=== PATIENT | male | born 1960 | race Caucasian/White ===

== ENCOUNTER → 2017-01-10 | Outpatient (CLI) | payer OTHER ==
[~2017-01-10] MED LIST: BACT800T5 PO; GABA100C4 PO; GLIP10TA6 PO; GLIP5TAB8 PO; METF500T PO; NORT10CA PO; NOVO7030P2 SQ; NOVORP2 SQ; [UNRECOGNIZED DRUG - CODE]
[2017-01-10 09:43] LABS: AUTOMATED NEUTROPHIL # 5.8 TH/MM3 (1.8-7.7); BASOPHIL # 0.1 TH/MM3 (0-0.2); BASOPHIL % 0.6 % (0.0-2.0); EOSINOPHIL # 0.2 TH/MM3 (0-0.4); EOSINOPHIL % 1.8 % (0.0-4.0); HEMO FLAGS DIFF FINAL; LYMPH % 23.5 % (9.0-44.0); MEAN CELL VOLUME 83.3 FL (80.0-100.0); MEAN CORPUSCULAR HEMOGLOBIN 27.9 PG (27.0-34.0); MEAN CORPUSCULAR HGB CONC 33.5 % (32.0-36.0); MONO % 6.9 % (0.0-8.0); NEUT % 67.2 % (16.0-70.0); PLATELET COUNT 194 TH/MM3 (150-450); RED BLOOD COUNT 5.17 MIL/MM3 (4.50-5.90); RED CELL DISTRIBUTION WIDTH 13.6 % (11.6-17.2); WHITE BLOOD COUNT 8.6 TH/MM3 (4.0-11.0)
[2017-01-10 10:22] LABS: ALT (GPT) 15 U/L (12-78); ANION GAP 8 MEQ/L (5-15); AST (GOT) 13 U/L (15-37); BICARBONATE 26.9 MEQ/L (21.0-32.0); BLOOD UREA NITROGEN 14 MG/DL (7-18); CHLORIDE 97 MEQ/L (98-107); GLOMERULAR FILTRATION RATE 104 ML/MIN (>89); GLUCOSE,FASTING 351 MG/DL (74-99); HEMOGLOBIN A1a 2.2 %; HEMOGLOBIN Ao 69.9 %; HEMOGLOBIN LA1C 3.7 %; POTASSIUM 4.3 MEQ/L (3.5-5.1); SODIUM (NA) 132 MEQ/L (136-145)
[2017-01-10 10:25] LABS: ALKALINE PHOSPHATASE 105 U/L (45-117); HDL CHOLESTEROL 38.6 MG/DL (40.0-60.0); LDL CHOLESTEROL 123 MG/DL (0-99); TOTAL BILIRUBIN ADULT 0.5 MG/DL (0.2-1.0)
== END ==
LOC: CLAB 08:55
PROVIDERS: ATTEND Nurse Practitioner Family
DX: E11.9 Type 2 diabetes mellitus without complications (principal)
CPT/HCPCS: 36415; 80053; 80061; 83036; 85025

== ENCOUNTER → 2017-03-12 | Outpatient (CLI) | payer OTHER ==
[~2017-03-12] MED LIST changes: +ASPI325T PO; -GLIP5TAB8 PO; +LOVA20TA PO; +METO25TA3 PO; +MULTTAB67 PO; -NORT10CA PO; -NOVORP2 SQ
[2017-03-12 11:08] LABS: HDL CHOLESTEROL 38.2 MG/DL (40.0-60.0)
== END ==
LOC: CLAB 09:56
PROVIDERS: ATTEND Nurse Practitioner Family
DX: E78.5 Hyperlipidemia, unspecified (principal)
CPT/HCPCS: 36415; 80061

== ENCOUNTER → 2017-03-13 | Outpatient (CLI) | payer OTHER ==
--- NOTE | 2017-03-13 14:04 | EKG ---
Date Performed: 03/13/2017 Time Performed: 10:04:26 PTAGE: 56 years EKG: Atrial fibrillation. Abnormal ECG NO PREVIOUS TRACING DOCTOR: Raulito Schultz Interpretating Date/Time 03/13/2017 14:03:58
== END ==
LOC: HCAV 09:57
PROVIDERS: ATTEND Nurse Practitioner Family
DX: I49.9 Cardiac arrhythmia, unspecified (principal)
CPT/HCPCS: 93005

== ENCOUNTER 2017-07-23 19:37 | Observation (INO) | payer OTHER ==
[2017-07-23] VITALS (7 sets, daily range): BP systolic 139–197; BP diastolic 70–120; PULSE 94–117; RESP 16–18; TEMP 98.4; O2SAT 98–100
[~2017-07-23 19:37] MED LIST changes: +ASPI-183 PO; -ASPI325T PO; -BACT800T5 PO
--- NOTE | 2017-07-23 20:17 | RADRPT ---
EXAM DATE/TIME: 07/23/2017 19:55 [facility] COMPARISON: No previous studies available for comparison. INDICATIONS : Chest pain. MEDICAL HISTORY : Hypertension. AFIB, Diabetes SURGICAL HISTORY : None. ENCOUNTER: Initial ACUITY: 1 day PAIN SCORE: 7/10 LOCATION: Left chest FINDINGS: PA and lateral views of the chest demonstrate the lungs to be symmetrically aerated without evidence of mass, infiltrate or effusion. The cardiomediastinal contours are unremarkable. Osseous structure s are intact. CONCLUSION: No acute disease. Reji Peters MD on July 23, 2017 at 20:12 Board Certified Radiologist. This report was verified electronically.
[2017-07-23 20:33] LABS: AUTOMATED NEUTROPHIL # 7.8 TH/MM3 (1.8-7.7); BASOPHIL % 0.4 % (0.0-2.0); EOSINOPHIL # 0.1 TH/MM3 (0-0.4); EOSINOPHIL % 0.8 % (0.0-4.0); HEMATOCRIT 41.9 % (39.0-51.0); HEMOGLOBIN 14.3 GM/DL (13.0-17.0); LYMPH % 19.3 % (9.0-44.0); LYMPHOCYTE # 2.1 TH/MM3 (1.0-4.8); MEAN CELL VOLUME 84.2 FL (80.0-100.0); MEAN CORPUSCULAR HEMOGLOBIN 28.7 PG (27.0-34.0); MEAN CORPUSCULAR HGB CONC 34.1 % (32.0-36.0); MEAN PLATELET VOLUME 8.7 FL (7.0-11.0); MONO % 8.2 % (0.0-8.0); MONOCYTE # 0.9 TH/MM3 (0-0.9); NEUT % 71.3 % (16.0-70.0); PLATELET COUNT 198 TH/MM3 (150-450); RED BLOOD COUNT 4.97 MIL/MM3 (4.50-5.90); RED CELL DISTRIBUTION WIDTH 15.6 % (11.6-17.2)
[2017-07-23 20:49] LABS: BICARBONATE 28.2 MEQ/L (21.0-32.0); BLOOD UREA NITROGEN 7 MG/DL (7-18); CALCIUM 9.6 MG/DL (8.5-10.1); CHLORIDE 94 MEQ/L (98-107); GLOMERULAR FILTRATION RATE 76 ML/MIN (>89); GLUCOSE,RANDOM 264 MG/DL (74-106); MAGNESIUM 1.9 MG/DL (1.5-2.5); SODIUM (NA) 130 MEQ/L (136-145)
[2017-07-23 20:51] LABS: PROTHROMBIN TIME - PATIENT 10.3 SEC (9.8-11.6)
[2017-07-23 20:53] LABS: TROPONIN I LESS THAN 0.02 NG/ML (0.02-0.05)
--- NOTE | 2017-07-23 20:59 | PD ---
HPI Chief Complaint: Chest Pain Time Seen by Provider: 20:40 Travel History International Travel<30 days: No Contact w/Intl Traveler<30days: No Traveled to known affect area: No History of Present Illness HPI The patient is a 57 year old male who presents to the [facility] emergency department with a history of this afternoon developing a sensation of squeezing in the center of his chest and intermittent sharp pains between his shoulder blades. The patient reports that he tried to stop drinking alcohol earlier today. He reports that he had been binging on alcohol for the last week. Prior to that he had been sober for 3 weeks. Patient has intermittently been battling alcoholism for years. His longest period of sobriety was 7 years. He did go to see his Alcoholics Anonymous sponsor earlier today and was told he needed to go to the emergency department for the chest pain. The patient reports that over the last few days he has not been taking his medications for atrial fibrillation, hypertension, and diabetes mellitus. The patient reports that he is on an adult aspirin daily for his atrial fibrillation. He denies ever having a stress test previously. He denies having any prior history of myocardial infarction. He reports having a family history of stroke in his dad. The patient also reports having a personal history of hyperlipidemia. He denies smoking. On review of systems otherwise, the patient reports that he does have associated shortness of breath with the squeezing sensation in his chest. He denies having any recent fevers, cough or congestion, neck pain, abdominal pain, vomiting, diarrhea, urinary symptoms, or neurologic symptoms. [facility] Past Medical History Narrative Medical The patient's past medical history is significant for alcohol abuse, diabetes mellitus, hyperlipidemia, hypertension, atrial fibrillation, diabetic neuropathy. The patient's primary care physician is to the [facility], a nurse practitioner. He cannot recall the name of at this time. Cardiovascular Problems: Yes Diabetes: Yes Past Surgical History Narrative Surgical The patient's past surgical history is significant for left foot pinning. Social History Alcohol Use: Yes (Two 4 packs of beer per day) Tobacco Use: No Substance Use: No Allergies-Medications (Allergen,Severity, Reaction): Coded Allergies: No Known Allergies (Unverified Allergy, Unknown, 07/23/17) Reported Meds & Prescriptions Reported Meds & Active Scripts Active Lovastatin 20 Mg Tab 20 Mg PO DAILY Metoprolol Tartrate 25 Mg Tab 25 Mg PO BID Aspirin 325 Mg Tab 325 Mg PO DAILY Metformin (Metformin HCl) 500 Mg Tab 500 Mg PO BIDPC With meals Glipizide 10 Mg Tab 10 Mg PO BIDAC Take 30 minutes before a meal Multiple Vitamin 1 Tab 1 Tab PO DAILY Gabapentin 100 Mg Cap 100 Mg PO TID Bd Insulin Syringe Ultraf 31G X 15/64" 0.5 ml (Insulin Syringe/Needle U-100) 1 Mis Mis Box Novolin 70-30 Inj (Insulin Human Isoph/Insulin Regular) 1,000 Unit/10 Ml Vial 12 Units SQ BID Review of Systems Except as stated in HPI: all other systems reviewed are Neg General / Constitutional: No: Fever Eyes: No: Visual changes HENT: Positive: Headaches, No: Congestion Cardiovascular: Positive: Chest Pain or Discomfort, Dyspnea on exertion Respiratory: Positive: Shortness of Breath, No: Cough Gastrointestinal: No: Nausea, Vomiting, Diarrhea, Abdominal Pain Genitourinary: No: Dysuria Musculoskeletal: No: Pain Skin: No Rash Neurologic: Positive: Headache, No: Weakness, Syncope, Focal Abnormalities, Change in Mentation, Slurred Speech, Sensory Disturbance Psychiatric: No: Depression Endocrine: No: Polydipsia Hematologic/Lymphatic: No: Easy Bruising Physical Exam Narrative General: The patient is a well-developed well-nourished male in no acute distress. Head and Neck exam: Head is normocephalic atraumatic. Eyes: EOMI, pupils are equal round and reactive to light. Nose: Midline septum with pink mucous membranes Mouth: Dentition unremarkable. Moist mucus membranes. Posterior oropharynx is not erythematous. No tonsillar hypertrophy. Uvula midline. Airway patent. Neck: No palpable lymphadenopathy. No nuchal rigidity. No thyromegaly. Cardiovascular: Irregularly irregular with a rate in the 1 teens to 120s without murmurs, gallops, or rubs. Lungs: Clear to auscultation bilaterally. No wheezes, rhonchi, or rales. Abdomen: Soft, without tenderness to palpation in all 4 quadrants of the abdomen. No guarding, rebound, or rigidity. Normal bowel sounds are audible. No tenderness on palpation of McBurney's point. Negative Vidales sign. Extremities: No clubbing, cyanosis, or edema. 2+ pulses in all 4 extremities. No calf tenderness on palpation. Back: No spinous process tenderness to palpation. No costovertebral angle tenderness to palpation. Neurologic Exam: Grossly nonfocal Skin Exam: No rash noted. Intact skin that is warm and dry. Data Data Last Documented VS Vital Signs Date Time Temp Pulse Resp B/P (MAP) Pulse Ox O2 Delivery O2 Flow Rate FiO2 07/23/17 21:33 98 16 147/70 (95) 100 Room Air 07/23/17 19:42 98.4 Orders Orders Electrocardiogram (07/23/17 19:45) Basic Metabolic Panel (Bmp) (07/23/17 19:45) B-Type Natriuretic Peptide (07/23/17 19:45) Ckmb (Isoenzyme) Profile (07/23/17 19:45) Complete Blood Count With Diff (07/23/17 19:45) Magnesium (Mg) (07/23/17 19:45) Prothrombin Time / Inr (Pt) (07/23/17 19:45) Act Partial Throm Time (Ptt) (07/23/17 19:45) Troponin I (07/23/17 19:45) Chest, Pa & Lat (07/23/17 19:45) Thyroid Stimulating Hormone (07/23/17 20:51) Iv Access Insert/Monitor (07/23/17 20:51) Ecg Monitoring (07/23/17 20:51) Oximetry (07/23/17 20:51) Sodium Chlor 0.9% 1000 Ml Inj (Ns 1000 M (07/23/17 21:00) Thiamine Inj (Thiamine Inj) (07/23/17 21:00) Diltiazem Inj (Cardizem Inj) (07/23/17 21:00) Nitroglycerin Sl (Nitrostat Sl) (07/23/17 21:00) Nitroglycerin 2% Oint (Nitroglycerin 2% (07/23/17 21:00) Aspirin Chew (Aspirin Chew) (07/23/17 21:00) CKMB (07/23/17 20:01) CKMB% (07/23/17 20:01) Cta Thor Abd Aorta W Iv C W3d (07/23/17 ) Bilateral Bp Monitoring (07/23/17 20:59) Iohexol 350 Inj (Omnipaque 350 Inj) (07/23/17 21:41) Diltiazem Inj (Cardizem Inj) (07/23/17 22:45) Admit Order (Ed Use Only) (07/23/17 22:46) Chlordiazepoxide (Librium) (07/23/17 23:00) Labs Laboratory Tests Test 07/23/17 20:01 07/23/17 21:15 White Blood Count 11.0 TH/MM3 Red Blood Count 4.97 MIL/MM3 Hemoglobin 14.3 GM/DL Hematocrit 41.9 % Mean Corpuscular Volume 84.2 FL Mean Corpuscular Hemoglobin 28.7 PG Mean Corpuscular Hemoglobin Concent 34.1 % Red Cell Distribution Width 15.6 % Platelet Count 198 TH/MM3 Mean Platelet Volume 8.7 FL Neutrophils (%) (Auto) 71.3 % Lymphocytes (%) (Auto) 19.3 % Monocytes (%) (Auto) 8.2 % Eosinophils (%) (Auto) 0.8 % Basophils (%) (Auto) 0.4 % Neutrophils # (Auto) 7.8 TH/MM3 Lymphocytes # (Auto) 2.1 TH/MM3 Monocytes # (Auto) 0.9 TH/MM3 Eosinophils # (Auto) 0.1 TH/MM3 Basophils # (Auto) 0.0 TH/MM3 CBC Comment DIFF FINAL Differential Comment Prothrombin Time 10.3 SEC Prothromb Time International Ratio 1.0 RATIO Activated Partial Thromboplast Time 24.0 SEC Blood Urea Nitrogen 7 MG/DL Creatinine 1.00 MG/DL Random Glucose 264 MG/DL Calcium Level 9.6 MG/DL Magnesium Level 1.9 MG/DL Sodium Level 130 MEQ/L Potassium Level 3.9 MEQ/L Chloride Level 94 MEQ/L Carbon Dioxide Level 28.2 MEQ/L Anion Gap 8 MEQ/L Estimat Glomerular Filtration Rate 76 ML/MIN Total Creatine Kinase 138 U/L Creatine Kinase MB 3.6 NG/ML Troponin I LESS THAN 0.02 NG/ML B-Type Natriuretic Peptide 30 PG/ML Thyroid Stimulating Hormone 3rd Gen 2.050 uIU/ML MDM Medical Decision Making Medical Screen Exam Complete: Yes Emergency Medical Condition: Yes Medical Record Reviewed: Yes Interpretation(s) Last Impressions Chest X-Ray 07/23/17 194 Signed Impressions: Service Date/Time: Sunday, July 23, 2017 19:55 - CONCLUSION: No acute disease. Reji Peters MD Aorta CTA 07/23/17 0000 Signed Impressions: Service Date/Time: Sunday, July 23, 2017 21:36 - CONCLUSION: 1. Negative exam. No aortic dissection or aneurysm. Moderate coronary calcifications. Reji Peters MD Differential Diagnosis Acute coronary syndrome, versus A. fib with RVR, versus diabetic ketoacidosis, versus hyperglycemia due to medication noncompliance, versus hypertensive emergency, versus aortic dissection Narrative Course During the course of the patient's emergency department visit, the patient's history, examination, and differential diagnosis were reviewed with the patient. The patient was placed on a ekg monitor tech with oximetry and frequent blood pressure monitoring. The patient had IV access obtained and blood work sent for analysis. The patient had a EKG done on arrival that shows A. fib with RVR, heart rate of 102, no acute ST segment elevation duration is 76 ms, QTC 395 ms. The patient was initially provided normal saline 1 L IV fluid bolus, thiamine 100 mg IV, Cardizem 20 mg IV, nitroglycerin sublingual every 5 minutes 3 as needed chest pain, nitroglycerin 1 inch to the chest wall, aspirin 324 mg p.o. 1. The patient was given Librium 25 mg p.o. 1. The patient's heart rate began to go up again and the patient was started on a Cardizem drip. The patient's laboratory studies were reviewed and remarkable for A white count of 11, hemoglobin 14.3, platelets 198 with neutrophils 71.3, monocytes 8.8.2, CMP is remarkable for sodium of 130, chloride 94, GFR of 76, glucose 264, initial set of cardiac enzymes are negative, BNP is 3, PT 10.3, PTT 240 Radiology studies were reviewed and remarkable for a chest x-ray that shows no acute cardiopulmonary disease. CTA of the aorta was negative for dissection. The patient's results were discussed with the patient, including the plan of care. I explained that further testing and/ or monitoring is indicated based on the patient's history, examination, and/ or laboratory findings. Therefore, I recommended admission for additional evaluation. The patient expressed understanding and was agreeable with this plan. The patient was admitted to the hospital in stable condition and sent to a bed under the care of the [facility]. Physician Communication Physician Communication The patient's case including history, pertinent physical examination findings, and laboratory studies were discussed with Dr. Oung. It was agreed that the patient would be admitted to the [facility]. Diagnosis Primary Impression: Chest pain, rule out acute myocardial infarction Additional Impressions: Atrial fibrillation with RVR Alcohol abuse Noncompliance with medication regimen Admitting Information Admitting Physician Requests: Princess Cole MD Jul 23, 2017 20:58
[2017-07-23] MEDS ORDERED: THIAMINE INJ 100 MG in SODIUM CHLORIDE 0.9% INJ 100 ML IV ONE (21:00)
[2017-07-23] MEDS ORDERED: DILTIAZEM HCL 25 MG/5 ML VIAL IV ONE (21:00)
[2017-07-23] MEDS ORDERED: NITROGLYCERIN 2% OINT 1 GM PACKET TOPICAL ONE (21:00)
[2017-07-23] MEDS ORDERED: ASPIRIN 81 MG CHEW TAB CHEW ONE (21:00)
[2017-07-23] MEDS ORDERED: SODIUM CHLOR 0.9% 1000 ML INJ 1,000 ML IV ONE (21:00)
[2017-07-23] MEDS: NITROGLYCERIN 0.4 MG SL 25 TABS/BTL SL PRN ×3 (21:07→21:41)
[2017-07-23] MEDS ORDERED: IOHEXOL 350 MG/ML 10 ML VIAL (for RAD DIAG) IVCONTRAST ONE (21:41)
--- NOTE | 2017-07-23 22:11 | RADRPT ---
EXAM DATE/TIME: 07/23/2017 21:36 [facility] COMPARISON: No previous studies available for comparison. INDICATIONS : Patient complains of chest pain, evaluate for aortic dissection. IV CONTRAST: 100 cc Omnipaque 350 (iohexol) IV RADIATION DOSE: 7.75 CTDIvol (mGy) MEDICAL HISTORY : Cardiovascular disease. Hypertension. Diabetes mellitus type 1.A fib SURGICAL HISTORY : None. ENCOUNTER: Initial ACUITY: 1 day PAIN SCALE: 2/10 LOCATION: chest TECHNIQUE: Volumetric scanning was performed using a multi-row detector CT scanner. The data was post processed with a variety of visualization algorithms including full volume maximum intensity projection, multi -planar sliding thin slab reformation, curved planar reformation, and surface rendering techniques. Using automated exposure control and adjustment of the mA and/or kV according to patient size, radiat ion dose was kept as low as reasonably achievable to obtain optimal diagnostic quality images. DICOM format image data is available electronically for review and comparison. FINDINGS: LUNGS: There is no consolidation or pneumothorax. No concerning pulmonary nodule is visualized. No pleural fluid is present. MEDIASTINUM: No abnormally enlarged lymph nodes by CT criteria. No axillary or hilar abnormalities are identified. Moderate coronary calcifications. ABDOMEN: The liver and spleen are free of focal defects. The gallbladder and pancreas demonstrate no abnormali ty. The adrenal glands are normal. The kidneys demonstrate no evidence of solid renal mass or hydrone phrosis. No free fluid or abdominal masses are identified. No para-aortic adenopathy is seen. PELVIS: No evidence of free fluid or pelvic mass. No abnormally enlarged inguinal or retroperitoneal lymph no lauren are present. The bladder is unremarkable. THORACIC AORTA: The thoracic aortic root is normal with normal branching of the great vessels. There is no evidence of aneurysm or dissection. ABDOMINAL AORTA: The aorta is normal in caliber without aneurysm or dissection. The renal arteries are patent bilater ally. The proximal celiac and superior mesenteric arteries are patent and normal in diameter. PELVIC VESSELS: The internal iliac and external iliac vessels are patent without aneurysm or stenosis. CONCLUSION: 1. Negative exam. No aortic dissection or aneurysm. Moderate coronary calcifications. Reji Peters MD on July 23, 2017 at 21:56 Board Certified Radiologist. This report was verified electronically.
[2017-07-23] MEDS ORDERED: DILTIAZEM INJ 125 MG in SODIUM CHLORIDE 0.9% INJ 100 ML IV PRN (22:45)
[2017-07-23] MEDS ORDERED: NALOXONE HCL 0.4 MG/ML AMP IV PUSH PRN (23:00)
[2017-07-23] MEDS ORDERED: LORazepam 2 MG/ML VIAL IV PUSH PRN (23:00)
[2017-07-23] MEDS ORDERED: chlordiazePOXIDE 25 MG CAP PO PRN (23:00)
[2017-07-23] MEDS ORDERED: SODIUM CHLORIDE 0.9% FLUSH 10 ML FLUSH IV FLUSH PRN (23:00)
[2017-07-24] VITALS (12 sets, daily range): BP systolic 107–141; BP diastolic 62–81; PULSE 77–117; RESP 14–20; TEMP 97.2–99.1; O2SAT 77–99
--- NOTE | 2017-07-24 01:16 | HHI.HP ---
[facility] Primary Care Physician Admission Diagnosis Afib with rvr, Chest pain r/o mi Diagnoses: Travel History International Travel<30 Days: No Contact w/Intl Traveler <30 Da: No Traveled to Known Affected Are: No History of Present Illness History from patient, ER physician, medication, review of medical records. Patient reported that today, while he was walking, he felt a knot in his chest right in the middle. He stated the discomfort did not go away even with rest. Also reports of this pain radiated into his back. Reports of associated sweats and chills as well. He states that the pain did not go away even with rest. He thought that this symptoms came because he has been trying to stop alcohol lately. Therefore he even drank a few beers daily but this also did not help with his chest pain. Then went to AA meeting and mentioned about his symptoms to the members there basically drove him to the hospital for further evaluation. Patient's blood pressure was high on arrival. He was also found to have A. fib with RVR and emergency room. He was given 1 dose of Cardizem 20 mg IV in ER after which his heart rate came down to about 90s. Patient admits to not taking his medications at home. He denies any prior history of chest pains like this. He states that today as well, he did not feel any palpitations. He was given Nitropaste in the emergency room. He states it did not really relieve his being 100%. He still continues to have pain at the time of my interview. Never had stress test. Denies any prior history of smoking. Risk factors of hypertension, diabetes, hyperlipidemia. Again, patient has not been taking his meds for past 4 days because of binge drinking. He states that his medications were at his friend's house. Review of Systems Except as stated in HPI: all other systems reviewed are Neg Past Family Social History Past Medical History htn dm hyperlipidemia afib- only on aspirin Past Surgical History toe has titanium and pins in it- left big toe Allergies: Coded Allergies: No Known Allergies (Verified Allergy, Unknown, 07/23/17) Family History 67 yo dad from [facility] mom- with enlarged heart in her 50s, cardiac arrest- recovered, and in her 70s Social History never smoked etoh abuse no drugs abuse- many years ago, used some pills Physical Exam Vital Signs Vital Signs Date Time Temp Pulse Resp B/P (MAP) Pulse Ox O2 Delivery O2 Flow Rate FiO2 07/24/17 01:03 94 16 141/79 (99) 99 Room Air 07/23/17 23:17 95 16 139/78 (98) 98 Room Air 07/23/17 22:30 94 18 139/76 (97) 100 Room Air 07/23/17 21:33 98 16 147/70 (95) 100 Room Air 07/23/17 21:31 106 16 161/74 (103) 100 07/23/17 20:46 106 16 189/112 (137) 100 07/23/17 20:44 117 18 197/111 (139) 100 07/23/17 19:42 98.4 112 18 195/120 (145) 100 Physical Exam GENERAL: This is a well-nourished, well-developed patient, in no apparent distress. SKIN: No rashes, ecchymoses or lesions. Cool and dry. HEAD: Atraumatic. Normocephalic. No temporal or scalp tenderness. EYES: No scleral icterus. No injection or drainage. ENT: Nose without bleeding, purulent drainage or septal hematoma. Airway patent. NECK: Trachea midline. No JVD CARDIOVASCULAR: Regular rate and rhythm without murmurs, gallops, or rubs. RESPIRATORY: Clear to auscultation. Breath sounds equal bilaterally. No wheezes , rales, or rhonchi. GASTROINTESTINAL: Abdomen soft, non-tender, nondistended. No guarding. MUSCULOSKELETAL: Extremities without clubbing, cyanosis, or edema.. No calf tenderness. NEUROLOGICAL: Awake and alert. Motor and sensory grossly within normal limits. Normal speech. Laboratory Laboratory Tests Test 07/23/17 20:01 07/23/17 21:15 White Blood Count 11.0 Red Blood Count 4.97 Hemoglobin 14.3 Hematocrit 41.9 Mean Corpuscular Volume 84.2 Mean Corpuscular Hemoglobin 28.7 Mean Corpuscular Hemoglobin Concent 34.1 Red Cell Distribution Width 15.6 Platelet Count 198 Mean Platelet Volume 8.7 Neutrophils (%) (Auto) 71.3 Lymphocytes (%) (Auto) 19.3 Monocytes (%) (Auto) 8.2 Eosinophils (%) (Auto) 0.8 Basophils (%) (Auto) 0.4 Neutrophils # (Auto) 7.8 Lymphocytes # (Auto) 2.1 Monocytes # (Auto) 0.9 Eosinophils # (Auto) 0.1 Basophils # (Auto) 0.0 CBC Comment DIFF FINAL Differential Comment Prothrombin Time 10.3 Prothromb Time International Ratio 1.0 Activated Partial Thromboplast Time 24.0 Blood Urea Nitrogen 7 Creatinine 1.00 Random Glucose 264 Calcium Level 9.6 Magnesium Level 1.9 Sodium Level 130 Potassium Level 3.9 Chloride Level 94 Carbon Dioxide Level 28.2 Anion Gap 8 Estimat Glomerular Filtration Rate 76 Total Creatine Kinase 138 Creatine Kinase MB 3.6 Troponin I LESS THAN 0.02 B-Type Natriuretic Peptide 30 Thyroid Stimulating Hormone 3rd Gen 2.050 Result Diagram: 07/23/17200007/23/172000 Imaging Last 48 hours Impressions Chest X-Ray 07/23/17 1945 Signed Impressions: Service Date/Time: Sunday, July 23, 2017 19:55 - CONCLUSION: No acute disease. Reji Peters MD Aorta CTA 07/23/17 0000 Signed Impressions: Service Date/Time: Sunday, July 23, 2017 21:36 - CONCLUSION: 1. Negative exam. No aortic dissection or aneurysm. Moderate coronary calcifications. MD Arabella Feliz VTE Risk Assessment Nixonrini VTE Risk Assessment: Mod/High Risk (score >= 2) Caprini Risk Assessment Model Point Value = 1 Point Value = 2 Point Value = 3 Point Value = 5 Age 41-60 Minor surgery BMI > 25 kg/m2 Swollen legs Varicose veins or History of unexplained or recurrent spontaneous Oral contraceptives or hormone replacement Sepsis (< 1 month) Serious lung disease, including pneumonia (< 1 month) Abnormal pulmonary function Acute myocardial infarction Congestive heart failure (< 1 month) History of inflammatory bowel disease Medical patient at bed rest Age 61-74 Arthroscopic surgery Major open surgery (> 45 min) Laparoscopic surgery (> 45 min) Malignancy Confined to bed (> 72 hours) Immobilizing plaster cast Central venous access Age >= 75 History of VTE Family history of VTE Factor V Leiden Prothrombin [id number] Lupus anticoagulant Anticardiolipin antibodies Elevated serum homocysteine Heparin-induced thrombocytopenia Other congenital or acquired thrombophilia Stroke (< 1 month) Elective arthroplasty Hip, pelvis, or leg fracture Acute spinal cord injury (< 1 month) Prophylaxis Regimen Total Risk Factor Score Risk Level Prophylaxis Regimen 0-1 Low Early ambulation 2 Moderate Order ONE of the following: *Sequential Compression Device (SCD) *Heparin 5000 units SQ BID 3-4 Higher Order ONE of the following medications: *Heparin 5000 units SQ TID *Enoxaparin/Lovenox 40 mg SQ daily (WT < 150 kg, CrCl > 30 mL/min) *Enoxaparin/Lovenox 30 mg SQ daily (WT < 150 kg, CrCl > 10-29 mL/min) *Enoxaparin/Lovenox 30 mg SQ BID (WT < 150 kg, CrCl > 30 mL/min) AND/OR *Sequential Compression Device (SCD) 5 or more Highest Order ONE of the following medications: *Heparin 5000 units SQ TID (Preferred with Epidurals) *Enoxaparin/Lovenox 40 mg SQ daily (WT < 150 kg, CrCl > 30 mL/min) *Enoxaparin/Lovenox 30 mg SQ daily (WT < 150 kg, CrCl > 10-29 mL/min) *Enoxaparin/Lovenox 30 mg SQ BID (WT < 150 kg, CrCl > 30 mL/min) AND *Sequential Compression Device (SCD) Assessment and Plan Assessment and Plan Impression: Unstable angina A. fib with RVR. Resolved with just 1 times dose of Cardizem 20 mg IV. Patient did not require any drip. Mild dehydration resulting in tachycardia and hemoconcentration Medications noncompliance htn dm hyperlipidemia afib- only on aspirin Plan: Serial enzymes and EKG. Telemetry monitoring. Patient received 1 L normal saline bolus in the ER. After the above hydration, and Cardizem 20 mg IV 1 dose, patient's heart rate has been around 80 to 90s in ER for several hours. Patient never required any Cardizem drip. Start patient on Lovenox 1 mg/kg subcutaneous every 12 hours. Aspirin. Beta blockers. Statins. Echocardiogram in a.m. Cardiology consult for risk stratification and further ischemic workup. Hold metformin. Resume glipizide. Fingersticks and sliding scale coverage. Patient is a candidate for full anticoagulation. Discussed with patient. If no further invasive workup, will need to start patient on anticoagulation. DVT prophylaxis on Lovenox. Discussed Condition With Patient, ER physician, nursing staff Al Cuadra MD Jul 24, 2017 01:16
[2017-07-24] MEDS ORDERED: GLUCAGON 1 MG/ML VIAL OTHER PRN (01:30)
[2017-07-24] MEDS ORDERED: DEXTROSE 50% IN WATER 50 ML VIAL(D50) IV PUSH PRN (01:30)
[2017-07-24 02:36] LABS: TROPONIN I LESS THAN 0.02 NG/ML (0.02-0.05)
[2017-07-24] MEDS: MELATONIN 5 MG TAB PO PRN ×2 (03:40→20:44)
[2017-07-24 05:18] LABS: AUTOMATED NEUTROPHIL # 5.2 TH/MM3 (1.8-7.7); BASOPHIL % 0.4 % (0.0-2.0); EOSINOPHIL # 0.1 TH/MM3 (0-0.4); EOSINOPHIL % 1.5 % (0.0-4.0); HEMATOCRIT 36.4 % (39.0-51.0); HEMOGLOBIN 12.5 GM/DL (13.0-17.0); LYMPH % 16.8 % (9.0-44.0); LYMPHOCYTE # 1.2 TH/MM3 (1.0-4.8); MEAN CORPUSCULAR HEMOGLOBIN 29.3 PG (27.0-34.0); MEAN CORPUSCULAR HGB CONC 34.4 % (32.0-36.0); MONO % 9.5 % (0.0-8.0); MONOCYTE # 0.7 TH/MM3 (0-0.9); NEUT % 71.8 % (16.0-70.0); PLATELET COUNT 155 TH/MM3 (150-450); RED BLOOD COUNT 4.29 MIL/MM3 (4.50-5.90); RED CELL DISTRIBUTION WIDTH 15.8 % (11.6-17.2); WHITE BLOOD COUNT 7.3 TH/MM3 (4.0-11.0)
[2017-07-24 05:33] LABS: BICARBONATE 26.5 MEQ/L (21.0-32.0); CALCIUM 8.5 MG/DL (8.5-10.1); CREATININE 0.99 MG/DL (0.60-1.30)
[2017-07-24] MEDS: glipiZIDE 10 MG TAB PO SCH ×2 (07:19→17:09)
[2017-07-24] MEDS: INSULIN ASPART SUPPLEMENTAL SCALE SQ SCH ×4 (08:41→21:00)
[2017-07-24] MEDS: THIAMINE HCL 100 MG TAB PO SCH (08:42)
[2017-07-24] MEDS: METOPROLOL TARTRATE 25 MG TAB PO SCH ×2 (08:42→20:44)
[2017-07-24] MEDS: GABAPENTIN 100 MG CAP PO SCH ×3 (08:42→18:36)
[2017-07-24] MEDS: ASPIRIN 325 MG TAB PO SCH (08:42)
[2017-07-24] MEDS: chlordiazePOXIDE 25 MG CAP PO SCH ×3 (08:42→18:36)
[2017-07-24] MEDS: PRAVASTATIN SOD 20 MG TAB PO SCH (08:42)
[2017-07-24] MEDS: SODIUM CHLORIDE 0.9% FLUSH 10 ML FLUSH IV FLUSH SCH ×2 (08:43→20:45)
[2017-07-24] MEDS ORDERED: ENOXAPARIN SODIUM 60 MG/0.6 ML SYRINGE SQ SCH (09:00)
--- NOTE | 2017-07-24 12:43 | MB ---
cc: MAGNUS LR M.D. DATE OF CONSULTATION: 07/24/2017 REASON FOR CONSULTATION Evaluation of chest pain and atrial fibrillation. HISTORY OF PRESENT ILLNESS Berry Diaz is a 57-year-old alcoholic with hypertension, diabetes, hyperlipidemia and chronic atrial fibrillation, who has been binge drinking and not taking his medications. He went to an AA meeting, he then describes feeling of chest pain, described as chest pressure and has come to the hospital. Troponins are negative. His heart rate has been elevated, he received one dose of Cardizem and restarted back on metoprolol. He has been seen in the [facility] and they noted he had atrial fibrillation and he refused warfarin and he never started anything other than aspirin for that. He still feels like something is not quite right in his left chest. He has received some Librium already. Denies any difficulty breathing. PAST MEDICAL HISTORY 1. Hypertension. 2. Diabetes. 3. Hyperlipidemia. 4. Chronic atrial fibrillation. PAST SURGICAL HISTORY Surgery on his toes. ALLERGIES None known. FAMILY HISTORY Mom had heart disease. Father from a stroke. SOCIAL HISTORY He has never smoked. Longstanding history of alcoholism. Denies illicit drug use. PHYSICAL EXAMINATION GENERAL: Reveals overweight, calm white male, in no acute distress. VITAL SIGNS: Vital signs are noted. He was severely hypertensive on admission. HEENT: Exam is unremarkable. NECK: Shows right carotid bruit. CHEST: Clear to auscultation. CARDIAC: S1-S2, regular rate and rhythm. I do not hear murmurs, gallops. ABDOMEN: Soft, nontender. EXTREMITIES: Extremities show no clubbing, cyanosis or edema. His pulses are intact. EKG Showed atrial fibrillation, ventricular rate in the 90s. No acute ST-T wave changes. LABORATORY DATA His troponins are negative. His sugars are elevated. He has been off medications as described. IMAGING STUDIES His CTA of the aorta shows moderate coronary calcification. His chest x-ray shows no acute disease. IMPRESSION Noncompliant 57-year-old alcoholic with hypertension, diabetes, hyperlipidemia, presenting with chest pain but no evidence for myocardial infarction. It sounds like unstable angina. He is also in atrial fibrillation with severe hypertension, meds have just been restarted. I am worried about his risk of alcohol withdrawal since his alcohol use is high. PLAN He likely will need a cardiac cath this admission, although we could consider a nuclear stress test. I am getting his atrial fibrillation stabilized with medication and probably plan a cath on Saturday morning, but will see how his course continues. He is a high-risk of going into DT's. He has coronary artery calcification on CT scans, so increases the likelihood of having significant coronary disease. Treatment is going to be complicated, he is not on anticoagulation for his atrial fibrillation despite having an elevated CHADS vas score. His alcoholism poses a major challenge in his treatment. 2-D echo Doppler is ordered. Further therapy to be determined. MD CHRISTINE Newell/BG /11:46 AM /12:24 PM
--- NOTE | 2017-07-24 16:13 | RADRPT ---
EXAM DATE/TIME: 07/24/2017 13:09 [facility] COMPARISON: No previous studies available for comparison. INDICATIONS : Bruit. MEDICAL HISTORY : Hypertension. Afib. Diabetes. SURGICAL HISTORY : Left toe surgical plate placed. ENCOUNTER: Initial ACUITY: 2 days PAIN SCORE: 5/10 LOCATION: Bilateral neck PEAK SYSTOLIC VELOCITIES (cm/sec): ICA/CCA RATIO: Right: 1.2 Left: 0.9 ICA: Right: 94 Left: 63 CCA: Right: 78 Left: 71 ECA: Right: 113 Left: 89 VERTEBRAL: Right: 36 antegrade Left: 39 antegrade Elevated flow velocities and ICA/CCA ratios have been found to correlate with increased degrees of vessel stenosis, calculated as percentage of diameter relative to a normal segment of distal ICA/CCA FINDINGS: RIGHT CAROTID: No significant stenosis is visualized. The waveforms are within normal limits. LEFT CAROTID: No significant stenosis is visualized. The waveforms are within normal limits. VERTEBRAL ARTERIES: Antegrade flow is seen in both vertebral arteries. MISCELLANEOUS: None. CONCLUSION: 1. Minimal carotid plaque without significant flow-limiting stenosis. 2. Antegrade vertebral artery flow bilaterally. Travis Morales MD on July 24, 2017 at 16:10 Board Certified Radiologist. This report was verified electronically.
--- NOTE | 2017-07-24 20:16 | EKG ---
Date Performed: 07/24/2017 Time Performed: 08:46:16 PTAGE: 57 years EKG: ATRIAL FIBRILLATION ABNORMAL RHYTHM ECG NO PREVIOUS TRACING DOCTOR: Jignesh Blake Interpretating Date/Time 07/24/2017 20:15:54
[2017-07-24] MEDS ORDERED: ACETAMINOPHEN 325 MG TAB PO ONE (21:15)
--- NOTE | 2017-07-24 21:20 | EKG ---
Date Performed: 07/24/2017 Time Performed: 02:13:39 PTAGE: 57 years EKG: ATRIAL FIBRILLATION NONSPECIFIC T-WAVE ABNORMALITY ABNORMAL RHYTHM ECG PREVIOUS TRACING : 07/23/2017 20.10 Since the prior tracing, there has been no significant castellanos DOCTOR: Jignesh Blake Interpretating Date/Time 07/24/2017 21:18:45
--- NOTE | 2017-07-24 21:39 | EKG ---
Date Performed: 07/23/2017 Time Performed: 20:10:41 PTAGE: 57 years EKG: ATRIAL FIBRILLATION WITH RAPID VENTRICULAR RESPONSE ABNORMAL RHYTHM ECG NO PREVIOUS TRACING DOCTOR: Jignesh Blake Interpretating Date/Time 07/24/2017 21:39:02
[2017-07-25] VITALS (7 sets, daily range): BP systolic 128–146; BP diastolic 78–88; PULSE 73–101; RESP 14–18; TEMP 98–98.4; O2SAT 97–100
[2017-07-25] MEDS: glipiZIDE 10 MG TAB PO SCH ×2 (06:40→17:02)
[2017-07-25] MEDS: INSULIN ASPART SUPPLEMENTAL SCALE SQ SCH ×3 (08:00→17:02)
[2017-07-25] MEDS ORDERED: METOPROLOL TARTRATE 50 MG TAB PO SCH (09:00)
[2017-07-25] MEDS ORDERED: FAMOTIDINE 20 MG TAB PO SCH (09:00)
[2017-07-25] MEDS: GABAPENTIN 100 MG CAP PO SCH ×2 (09:16→14:04)
[2017-07-25] MEDS: PRAVASTATIN SOD 20 MG TAB PO SCH (09:16)
[2017-07-25] MEDS: THIAMINE HCL 100 MG TAB PO SCH (09:16)
[2017-07-25] MEDS: SODIUM CHLORIDE 0.9% FLUSH 10 ML FLUSH IV FLUSH SCH (09:17)
[2017-07-25] MEDS: ASPIRIN 325 MG TAB PO SCH (09:17)
[2017-07-25] MEDS: chlordiazePOXIDE 25 MG CAP PO SCH ×2 (09:17→14:04)
--- NOTE | 2017-07-25 10:01 | PD.CARD.PN ---
Subjective Subjective Remarks states chest isn't hurting as much. I'm adding Pepcid. No alcohol withdrawal feeling. Objective Medications Current Medications Medications (Trade) Dose Ordered Sig/Ana Route Start Time Stop Time Status Last Admin (Nitrostat Sl) 0.4 mg Q5M PRN SL 07/23/17 21:00 07/23/17 21:31 (Librium) 25 mg NOW PRN PO 07/23/17 23:00 (NS Flush) 2 ml UNSCH PRN IV FLUSH 07/23/17 23:00 (NS Flush) 2 ml BID IV FLUSH 07/24/17 09:00 07/25/17 09:17 (Narcan Inj) 0.4 mg UNSCH PRN IV PUSH 07/23/17 23:00 (Librium) 25 mg TID PO 07/24/17 09:00 07/25/17 09:17 (Ativan Inj) 1 mg Q2H PRN IV PUSH 07/23/17 23:00 (Vitamin B1) 100 mg DAILY PO 07/24/17 09:00 07/25/17 09:16 (D50w (Vial) Inj) 50 ml UNSCH PRN IV PUSH 07/24/17 01:30 (Glucagon Inj) 1 mg UNSCH PRN OTHER 07/24/17 01:30 (NovoLOG SUPPLEMENTAL SCALE) 1 ACHS SLIDING SCALE SQ 07/24/17 08:00 07/24/17 21:00 (Aspirin) 325 mg DAILY PO 07/24/17 09:00 07/25/17 09:17 (Neurontin) 100 mg TID PO 07/24/17 09:00 07/25/17 09:16 (Glucotrol) 10 mg BIDAC PO 07/24/17 07:00 07/25/17 06:40 (Pravachol) 20 mg DAILY PO 07/24/17 09:00 07/25/17 09:16 (Melatonin) 5 mg HS PRN PO 07/24/17 01:30 07/24/17 20:44 (Lovenox Inj) 75 mg Q12H SQ 07/25/17 13:00 (Lopressor) 50 mg BID PO 07/25/17 09:00 07/25/17 09:21 (Pepcid) 20 mg BID PO 07/25/17 09:00 07/25/17 09:17 Vital Signs / I&O Vital Signs Date Time Temp Pulse Resp B/P (MAP) Pulse Ox O2 Delivery O2 Flow Rate FiO2 07/25/17 07:56 98.4 95 18 146/87 (106) 99 07/25/17 04:45 101 07/25/17 04:14 98.0 89 14 128/78 (95) 97 07/25/17 01:08 89 07/24/17 23:59 98.5 77 14 117/73 (88) 77 07/24/17 20:52 99 07/24/17 19:48 99.1 112 16 130/73 (92) 98 07/24/17 15:31 97.7 96 16 107/62 (77) 97 07/24/17 11:36 98.7 95 19 120/70 (87) 99 I/O 07/24/17 07/24/17 07/24/17 07/25/17 07/25/17 07/25/17 07:00 15:00 23:00 07:00 15:00 23:00 Intake Total 240 ml Balance 240 ml Intake Oral 240 ml # Voids 1 1 # Bowel Movements 0 Physical Exam Alert Tele: AF is a little fast/ metoprolol increased Echo pending Chest Clear CV S1S2 irr irr no edema Assessment and Plan Problem List: (1) Unstable angina pectoris ICD Codes: I20.0 - Unstable angina Plan: Unsure if pain cardiac (2) Alcohol abuse ICD Codes: F10.10 - Alcohol abuse, uncomplicated Status: Acute (3) Atrial fibrillation with RVR ICD Codes: I48.91 - Unspecified atrial fibrillation Status: Acute Plan: metoprolol increased Assessment and Plan added Pepcid. Metoprolol increased. Aleksandra-SPECT today. Cardiac cath in AM if SPECT shows ischemia Robi Roberts MD Jul 25, 2017 10:01
[2017-07-25] MEDS ORDERED: FLUMAZENIL 0.5 MG/5 ML VIAL IV PUSH PRN (11:15)
[2017-07-25] MEDS ORDERED: LORazepam 2 MG TAB PO PRN (11:15)
[2017-07-25] MEDS ORDERED: LORazepam 1 MG TAB PO PRN (11:15)
[2017-07-25] MEDS ORDERED: LORazepam 2 MG/ML VIAL IV PUSH PRN ×4 (11:15)
--- NOTE | 2017-07-25 11:55 | HHI.PR ---
Subjective Remarks Follow-up on patient with chest pain, alcohol abuse. Patient seen and examined. Patient states he feels better but he continues to have a tight fist- like sensation in his chest. He denies any shortness of breath. Denies any fever or chills. Denies any agitation or shakiness. Denies any visual or auditory hallucinations. His last drink was Saturday. Cardiology following, patient currently nothing by mouth for nuclear stress test. Objective Vitals Vital Signs Date Time Temp Pulse Resp B/P (MAP) Pulse Ox O2 Delivery O2 Flow Rate FiO2 07/25/17 07:56 98.4 95 18 146/87 (106) 99 07/25/17 04:45 101 07/25/17 04:14 98.0 89 14 128/78 (95) 97 07/25/17 01:08 89 07/24/17 23:59 98.5 77 14 117/73 (88) 77 07/24/17 20:52 99 07/24/17 19:48 99.1 112 16 130/73 (92) 98 07/24/17 15:31 97.7 96 16 107/62 (77) 97 I/O 07/24/17 07/24/17 07/24/17 07/25/17 07/25/17 07/25/17 07:00 15:00 23:00 07:00 15:00 23:00 Intake Total 240 ml Balance 240 ml Intake Oral 240 ml # Voids 1 1 # Bowel Movements 0 Result Diagram: 07/24/17 0428 07/24/17 0428 Imaging Last Impressions Carotid Artery Ultrasound 07/24/17 0000 Signed Impressions: Service Date/Time: Monday, July 24, 2017 13:09 - CONCLUSION: 1. Minimal carotid plaque without significant flow-limiting stenosis. 2. Antegrade vertebral artery flow bilaterally. Travis Morales MD Chest X-Ray 07/23/17 194 Signed Impressions: Service Date/Time: Sunday, July 23, 2017 19:55 - CONCLUSION: No acute disease. Reji Peters MD Aorta CTA 07/23/17 0000 Signed Impressions: Service Date/Time: Sunday, July 23, 2017 21:36 - CONCLUSION: 1. Negative exam. No aortic dissection or aneurysm. Moderate coronary calcifications. Reji Peters MD Objective Remarks GENERAL: This is a well-nourished, well-developed male patient, in no apparent distress. Awake and alert. Appears comfortable. SKIN: Cool and dry. HEAD: Atraumatic. Normocephalic. EYES: EOMI. No scleral icterus. No injection or drainage. ENT: Nose without bleeding or purulent drainage. Airway patent. MMM. NECK: Trachea midline. CARDIOVASCULAR: Irregular without murmurs, gallops, or rubs. RESPIRATORY: Clear to auscultation. Breath sounds equal bilaterally. No wheezes , rales, or rhonchi. GASTROINTESTINAL: Abdomen soft, non-tender, nondistended. No guarding. MUSCULOSKELETAL: Extremities without clubbing, cyanosis, or edema.. No calf tenderness. NEUROLOGICAL: Awake and alert. Motor and sensory grossly within normal limits. Nonfocal. Normal speech. Medications and IVs Current Medications Medications (Trade) Dose Ordered Sig/Ana Route Start Time Stop Time Status Last Admin (Nitrostat Sl) 0.4 mg Q5M PRN SL 07/23/17 21:00 07/23/17 21:31 (Librium) 25 mg NOW PRN PO 07/23/17 23:00 (NS Flush) 2 ml UNSCH PRN IV FLUSH 07/23/17 23:00 (NS Flush) 2 ml BID IV FLUSH 07/24/17 09:00 07/25/17 09:17 (Narcan Inj) 0.4 mg UNSCH PRN IV PUSH 07/23/17 23:00 (Librium) 25 mg TID PO 07/24/17 09:00 07/25/17 09:17 (Ativan Inj) 1 mg Q2H PRN IV PUSH 07/23/17 23:00 (Vitamin B1) 100 mg DAILY PO 07/24/17 09:00 07/25/17 09:16 (D50w (Vial) Inj) 50 ml UNSCH PRN IV PUSH 07/24/17 01:30 (Glucagon Inj) 1 mg UNSCH PRN OTHER 07/24/17 01:30 (NovoLOG SUPPLEMENTAL SCALE) 1 ACHS SLIDING SCALE SQ 07/24/17 08:00 07/24/17 21:00 (Aspirin) 325 mg DAILY PO 07/24/17 09:00 07/25/17 09:17 (Neurontin) 100 mg TID PO 07/24/17 09:00 07/25/17 09:16 (Glucotrol) 10 mg BIDAC PO 07/24/17 07:00 07/25/17 06:40 (Pravachol) 20 mg DAILY PO 07/24/17 09:00 07/25/17 09:16 (Melatonin) 5 mg HS PRN PO 07/24/17 01:30 07/24/17 20:44 (Lovenox Inj) 75 mg Q12H SQ 07/25/17 13:00 (Lopressor) 50 mg BID PO 07/25/17 09:00 07/25/17 09:21 (Pepcid) 20 mg BID PO 07/25/17 09:00 07/25/17 09:17 (Folate) 1 mg DAILY PO 07/26/17 09:00 (Theragran) 1 tab DAILY PO 07/26/17 09:00 (Romazicon Inj) 0.2 mg Q1M PRN IV PUSH 07/25/17 11:15 (Ativan) 1 mg Q4H PRN PO 07/25/17 11:15 (Ativan Inj) 1 mg Q4H PRN IV PUSH 07/25/17 11:15 (Ativan) 2 mg Q2H PRN PO 07/25/17 11:15 (Ativan Inj) 2 mg Q2H PRN IV PUSH 07/25/17 11:15 (Ativan Inj) 2 mg Q1H PRN IV PUSH 07/25/17 11:15 (Ativan Inj) 2 mg Q15M PRN IV PUSH 07/25/17 11:15 A/P Assessment and Plan Unstable angina Cardiology following, appreciate assistance. Plan for nuclear stress test today , pending results may have cardiac catheter in a.m. Pepcid added on today. Continuous cardiac monitoring Supplemental oxygen as needed Nitroglycerin BB, ASA and statin daily A. fib with RVR, not on any anticoagulation except for ASA Resolved with just 1 times dose of Cardizem 20 mg IV. Patient did not require any drip. Rate controlled [id number] score 2 Metoprolol dose increased by cardiology Echo pending HTN Controlled Continue on metoprolol Continue to monitor BP and adjust treatment accordingly DM Metformin on hold Patient continued on glipizide Accu-Cheks and insulin sliding scale Alcohol abuse Last drink was Saturday, 2 days ago Patient currently in AA CIWA protocol started on Librium 25mg TID at admission, taper Monitor for signs/symptoms of withdrawal Thiamine/folate/multivitamin daily DVT prophylaxis Lovenox 181: Stress test negative. Echo resulted/EF 40-45%. Cleared for discharge from cardiac standpoint. Discussed with patient echocardiogram findings and given CHF teaching. Strongly advised to stop drinking all alcohol. Discharge patient to home Condition on discharge: Improved Heart healthy diabetic Diet as tolerated Ad Linda activity Rx written: Lisinopril, ASA, Metoprolol, Pepcid. Thiamine, Folate and MVI Follow-up with primary care physician and construction project administrator Rosa M Sesay Jul 25, 2017 11:55
[2017-07-25] MEDS ORDERED: REGADENOSON INJ 0.4 MG/5 ML SYR ONE (12:01)
[2017-07-25] MEDS ORDERED: ENOXAPARIN SODIUM 80 MG/0.8 ML SYRINGE SQ SCH (13:00)
--- NOTE | 2017-07-25 13:38 | RADRPT ---
EXAM DATE/TIME: 07/25/2017 11:45 [facility] COMPARISON: No previous studies available for comparison. INDICATIONS : Substernal chest pain radiating between shoulder blades. Angina. Atrial fibrillation. DOSE: 27.2 mCi Tc99m Myoview at stress. 8.5 mCi Tc99m Myoview at rest. 0.4 mg Lexiscan STRESS SYMPTOMS: Dizziness and dyspnea. EJECTION FRACTION: 51% MEDICAL HISTORY : Hypertension. Diabetes mellitus type 2. SURGICAL HISTORY : Toe. ENCOUNTER: Initial ACUITY: 1 day PAIN SCALE: 3/10 LOCATION: Substernal chest TECHNIQUE: The patient underwent pharmacologic stress with infusion of prescribed dose. Continuous ECG tracing was monitored during stress. Gated SPECT imaging was performed after stress and conventional SPECT i maging was performed at rest. The examination was performed on a SPECT/CT scanner, both attenuation and non-corrected datasets were reviewed. FINDINGS: DISTRIBUTION: The maximum perfused segment at stress is in the anterior wall. PERFUSION STUDY: The pattern of perfusion at stress is within normal limits. GATED STUDY: There is intact wall motion and thickening without hypokinetic or dyskinetic segments. CONCLUSION: Normal examination. RISK CATEGORY: Low (<1% Annual Mortality Rate) Wyatt Marshall MD on July 25, 2017 at 13:33 Board Certified Radiologist. This report was verified electronically.
--- NOTE | 2017-07-25 17:02 | ECHRPT ---
Indication: a fib CONCLUSIONS Normal left ventricular size. The left ventricular systolic function is moderately reduced with an estimated ejection fraction in the range of 40-45%. Trace mitral valve regurgitation. Trace aortic valve regurgitation. There is mild tricuspid valve regurgitation. The estimated pulmonary arterial pressure is 30.1 mmHg. BP: / HR: Rhythm: MEASUREMENTS (Male / Female) Normal Values Technical Quality:Technically difficult study 2D ECHO LV Diastolic Diameter PLAX 4.5 cm 4.2 - 5.9 / 3.9 - 5.3 cm LV Systolic Diameter PLAX 3.7 cm IVS Diastolic Thickness 1.4 cm 0.6 - 1.0 / 0.6 - 0.9 cm LVPW Diastolic Thickness 1.1 cm 0.6 - 1.0 / 0.6 - 0.9 cm LV Relative Wall Thickness 0.5 RV Internal Dim ED PLAX 3.5 cm M-MODE Aortic Root Diameter MM 3.6 cm LA Systolic Diameter MM 4.1 cm LA Ao Ratio MM 1.1 AV Cusp Separation MM 1.9 cm DOPPLER TR Peak Velocity 224.0 cm/s TR Peak Gradient 20.1 mmHg Right Atrial Pressure 10.0 mmHg Pulmonary Artery Systolic Pressu 30.1 mmHg Right Ventricular Systolic Press 30.1 mmHg FINDINGS LEFT VENTRICLE Normal left ventricular size. The left ventricular systolic function is moderately reduced with an estimated ejection fraction in the range of 40-45%. RIGHT VENTRICLE Normal right ventricular size and systolic function. LEFT ATRIUM The left atrial size is normal. RIGHT ATRIUM The right atrial size is normal. ATRIAL SEPTUM Normal atrial septal thickness without atrial level shunting by limited color doppler interrogation. AORTA The aortic root and proximal ascending aorta are normal in size on limited imaging. MITRAL VALVE Structurally normal mitral valve. Trace mitral valve regurgitation. AORTIC VALVE Trileaflet aortic valve. Trace aortic valve regurgitation. TRICUSPID VALVE Structurally normal tricuspid valve. There is mild tricuspid valve regurgitation. The estimated pulmonary arterial pressure is 30.1 mmHg. PULMONARY VALVE No pulmonary valve regurgitation or stenosis. VESSELS The inferior vena cava is normal in size. PERICARDIUM No pericardial effusion. Preet Rodriguez MD, FACC, [id number] (Electronically Signed) Final Date:25 July 2017 17:02
[2017-07-25] MEDS ORDERED: CHLO10CA5 PO (17:47)
[2017-07-25] MEDS ORDERED: LISI2.5T3 PO (18:06)
[2017-07-25] MEDS ORDERED: FAMO20TA2 PO (18:06)
[2017-07-25] MEDS ORDERED: FOLI1TAB6 PO (18:06)
[2017-07-25] MEDS ORDERED: THIA100 PO (18:06)
[2017-07-25] MEDS ORDERED: METO25TA3 PO (18:06)
[2017-07-25] MEDS ORDERED: ASPI-183 PO (18:06)
--- NOTE | 2017-07-25 18:10 | HHI.DCPOC ---
Discharge Care Plan Diagnosis: (1) Diabetes (2) Hypertension (3) Systolic CHF (4) Atrial fibrillation with RVR (5) Noncompliance with medication regimen (6) Alcohol abuse (7) Chest pain, rule out acute myocardial infarction (8) Unstable angina pectoris Goals to Promote Your Health * To prevent worsening of your condition and complications * To maintain your health at the optimal level Directions to Meet Your Goals Strongly advise you to completely stop drinking alcohol Recommend heart healthy, diabetic low-salt diet - 2gm sodium daily. Recommend monitoring your fluid intake and limiting yourself to 2 L of fluid daily. Recommend daily weights and contact her physician if you notice a 2 pound weight gain in 2 days. Take your medications as prescribed Follow your dietary instruction Follow activity as directed Keep your appointments as scheduled Take your immunizations and boosters as scheduled If your symptoms worsen call your PCP, if no PCP go to Urgent Care Center or Emergency Room Smoking is Dangerous to Your Health. Avoid second hand smoke Call the 24-hour hour crisis hotline for domestic abuse at Rosa M Sesay Jul 25, 2017 18:09
[2017-07-25] MEDS ORDERED: chlordiazePOXIDE 25 MG CAP PO SCH (21:00)
[2017-07-25] MEDS ORDERED: INSULIN ASPART SUPPLEMENTAL SCALE SQ SCH (21:00)
[2017-07-26] MEDS ORDERED: MULTIVITAMIN TAB PO SCH (09:00)
[2017-07-26] MEDS ORDERED: FOLIC ACID 1 MG TAB PO SCH (09:00)
== END 2017-07-25 18:53 | disposition home or self-care (01) ==
LOC: NEPE 19:37 → NEDA 22:48 → NEDH 07-24 02:48 → NEPHCDU 07-24 15:28
PROVIDERS: ADMIT Internal Medicine; ATTEND Internal Medicine
DX: I20.0 Unstable angina (principal); R06.02 Shortness of breath; I11.0 Hypertensive heart disease with heart failure; I50.20 Unspecified systolic (congestive) heart failure; I48.2 Chronic atrial fibrillation; E86.0 Dehydration; E78.5 Hyperlipidemia, unspecified; R68.83 Chills (without fever); F10.20 Alcohol dependence, uncomplicated; E11.40 Type 2 diabetes mellitus with diabetic neuropathy, unspecified; Z79.899 Other long term (current) drug therapy; Z79.82 Long term (current) use of aspirin; Z79.84 Long term (current) use of oral hypoglycemic drugs; Z91.14 Patient's other noncompliance with medication regimen
CPT/HCPCS: 71046; 71275; 74174; 78452; 80048; 82550; 82552; 82948; 83735; 83880; 84443; 84484; 85025; 85610; 85730; 93005; 93017; 93306; 93880; 96365; 96372; 96375; 99285; A9502; G0378; J1650; J1815; J2785; J3411; J7030; Q9967